=== PATIENT | female | born 1985 | race African-American/Black ===

== ENCOUNTER 2018-09-16 08:59 | Emergency (ER) | payer MEDICAID ==
[~2018-09-16] VITALS: Ht 175.3 cm; Wt 95.0 kg
[2018-09-16 11:28] VITALS: BP 111/72
== END 2018-09-16 11:30 | disposition home or self-care (01) ==
LOC: ER 09:29
DX: J20.9 Acute bronchitis, unspecified (principal); Z87.891 Personal history of nicotine dependence
CPT/HCPCS: 71045; 81025; 99283

== ENCOUNTER 2019-07-26 07:14 | Emergency (ER) | payer MEDICAID, MEDICARE ==
[~2019-07-26] VITALS: Ht 175.3 cm; Wt 78.0 kg
[2019-07-26 07:46] VITALS: BP 113/65
== END 2019-07-26 09:03 | disposition home or self-care (01) ==
LOC: ER 07:14
DX: J06.9 Acute upper respiratory infection, unspecified (principal); F12.10 Cannabis abuse, uncomplicated; F17.210 Nicotine dependence, cigarettes, uncomplicated; Z71.6 Tobacco abuse counseling
CPT/HCPCS: 99283